=== PATIENT | female | born 1965 | race Caucasian/White ===

== ENCOUNTER 2017-02-23 15:43 | Emergency (ER) | payer OTHER ==
[2017-02-23 15:43] VITALS: BMI 48.8
[2017-02-23 15:54] VITALS: O2SAT 99
--- NOTE | 2017-02-23 16:02 | ED PDOC ---
Arrival/HPI - General Chief Complaint: Finger,Hand,&Wrist Time Seen by Provider: 02/23/17 16:01 Historian: Patient - History of Present Illness Narrative History of Present Illness (Text): 02/23/17 16:01 51 y/o female, pmh including htn/hypothyroidism, nkda, c/o lt. thumb infection x 4 days with no fall or trauma. Pt. stated that she picked her nail on the rt. thumb about 1 week ago, been having pain and swelling, no fever or chills, no difficulty bending or extending the thumb, no night sweat, no dizziness, no other medical or psychological complaints. Past Medical History - Provider Review Nursing Documentation Reviewed: Yes - Past History Past History: Non-Contributing - Infectious Disease Hx of Infectious Diseases: None - Tetanus Immunization Tetanus Immunization: Unknown - Reproductive Menopause: Yes - Cardiac Hx Cardiac Disorders: Yes Hx Hypertension: Yes Hx Pacemaker: No - Neurological Hx Paralysis: No - Endocrine/Metabolic Hx Hypothyroidism: Yes - Musculoskeletal/Rheumatological Hx Falls: No - Psychiatric Hx Depression: No Hx Emotional Abuse: No Hx Physical Abuse: No Hx Substance Use: No - Past Surgical History Past Surgical History: Non-Contributing - Surgical History Hx Section: Yes Other/Comment: Gastric sleeve - Anesthesia Hx Anesthesia: No - Suicidal Assessment Feels Threatened In Home Enviroment: No Family/Social History - Physician Review Nursing Documentation Reviewed: Yes Family/Social History: Unknown Family HX Smoking Status: Never Smoked Hx Alcohol Use: No Hx Substance Use: No Hx Substance Use Treatment: No Allergies/Home Meds Allergies/Adverse Reactions: Allergies No Known Allergies Allergy (Verified 02/23/17 15:51) Home Medications: Home Meds Medication Instructions Recorded Confirmed Levothyroxine [Synthroid] 112 mcg PO DAILY 12/21/12 02/23/17 Diclofenac Sodium [Voltaren] 75 mg PO BID 02/23/17 02/23/17 Triamterene/Hydrochlorothiazid 1 cap PO DAILY 02/23/17 02/23/17 [Triamterene-Hydrochlorothiazide 25 mg-37.5 mg] Review of Systems - Review of Systems Constitutional: absent: Fatigue, Fevers Eyes: absent: Vision Changes ENT: absent: Hearing Changes Respiratory: absent: SOB, Cough Cardiovascular: absent: Chest Pain Gastrointestinal: absent: Abdominal Pain, Nausea, Vomiting Skin: Rash, Cellulitis. absent: Pruritis, Skin Lesions, Laceration, Abscess, Ulcer Neurological: absent: Headache, Dizziness Physical Exam Vital Signs Reviewed: Yes Vital Signs Temp Pulse Resp BP Pulse Ox 02/23/17 15:53 98.5 F 63 18 118/64 99 Temperature: Afebrile Blood Pressure: Normal Pulse: Regular Respiratory Rate: Normal Appearance: Positive for: Well-Appearing, Non-Toxic Pain Distress: Moderate Mental Status: Positive for: Alert and Oriented X 3 - Systems Exam Head: Present: Atraumatic, Normocephalic Pupils: Present: PERRL Extroacular Muscles: Present: EOMI Conjunctiva: Present: Normal Mouth: Present: Moist Mucous Membranes Neck: Present: Normal Range of Motion Respiratory/Chest: Present: Clear to Auscultation, Good Air Exchange. No: Respiratory Distress, Accessory Muscle Use Cardiovascular: Present: Regular Rate and Rhythm, Normal S1, S2. No: Murmurs Abdomen: Present: Normal Bowel Sounds. No: Tenderness, Distention, Peritoneal Signs Back: Present: Normal Inspection Upper Extremity: Present: Normal Inspection, Other (Lt. hand thumb: visible paronychia noted with fluctuancy on the base of the nail fold region with mild redness surrounding, no tenderness on the flexor or extensor tendon, no streaking or ulcers, FROM without limitation, sensation intact, motor 5/5, + radial pulse, capillary refill< 2 seconds, neurovascular intact, no sausage fingers. ). No: Cyanosis, Edema Lower Extremity: Present: Normal Inspection. No: Edema Neurological: Present: GCS=15, CN II-XII Intact, Speech Normal Skin: Present: Warm, Dry, Normal Color. No: Rashes Psychiatric: Present: Alert, Oriented x 3, Normal Insight, Normal Concentration Medical Decision Making ED Course and Treatment: 02/23/17 16:55 -keflex/bactrim ds/percocet -urine hcg negative -sensation intact, motor 5/5, wound irrigate with normal saline 250cc, clean with betadine, #11 blade made approx. 0.25cm opening which drained approx. 0.5 to 1cc of yellow purulant discharge with the swelling and pain spontaneously resolved, sensation intact, motor 5/5, neurovascular intact. pt. tolerated the procedure well. -Discharge home with keflex, bactrim ds, motrin, keep the dressing dry and clean for 24 hours, clean twice daily at home, follow up with your own pmd and hand specialist within 2 days, return to the ER for any new or worsening signs or symptoms. - PA / [employer]NA[employer] / Resident Statement MD/DO has reviewed & agrees with the documentation as recorded. Disposition/Present on Arrival - Present on Arrival Any Indicators Present on Arrival: No History of DVT/PE: No History of Uncontrolled Diabetes: No Urinary Catheter: No History of Decub. Ulcer: No History Surgical Site Infection Following: None - Disposition Have Diagnosis and Disposition been Completed?: Yes Diagnosis: Cellulitis, Paronychia Disposition: HOME/ ROUTINE Disposition Time: 16:57 Patient Plan: Discharge Condition: IMPROVED Discharge Instructions (ExitCare): Cellulitis (ED), Paronychia (ED) Print Language: SWISS Additional Instructions: -Discharge home with keflex, bactrim ds, motrin, keep the dressing dry and clean for 24 hours, clean twice daily at home, follow up with your own pmd and hand specialist within 2 days, return to the ER for any new or worsening signs or symptoms. Prescriptions: Cephalexin [cephalexin] 500 mg PO QID #40 cap Ibuprofen [Motrin] 600 mg PO QID PRN #24 tab PRN Reason: Other Sulfamethoxazole/Trimethoprim [Bactrim Ds Tablet] 1 each PO BID #20 tablet Referrals: Sakina Kwong MD [Staff Provider] - Follow up with primary Forms: [email or web address] (Telugu), WORK NOTE
[2017-02-23] MEDS ORDERED: Tmp-Smz 800 mg-160 mg DS Tab PO STA (16:51)
[2017-02-23] MEDS ORDERED: Oxycodone/Acetaminophen 5/325 mg Tab PO STA (16:51)
[2017-02-23 17:39] VITALS: BP 127/63; PULSE 75; RESP 20; TEMP 98
== END 2017-02-23 17:40 | disposition home or self-care (01) ==
LOC: ED 15:43
DX: L03.012 Cellulitis of left finger (principal)

== ENCOUNTER 2017-03-27 10:57 | Emergency (ER) | payer OTHER ==
[2017-03-27 10:57] VITALS: BMI 48.8
[2017-03-27] MEDS ORDERED: Lidocaine 5% Patch TD STA (11:57)
--- NOTE | 2017-03-27 12:00 | ED PDOC ---
Arrival/HPI - General Time Seen by Provider: 03/27/17 11:47 Historian: Patient - History of Present Illness Narrative History of Present Illness (Text): 03/27/17 11:56 A 51 year old female, whose past medical history includes hypertension and hypothyroidism, presents to the emergency department complaining of lower back pain for the past few days. Patient reports radiating pain down her right leg, which she describes as a pins and needles sensation. Patient denies any trauma, injury, fever,chills, nausea, vomiting, abdominal pain, urinary symptoms, chest pain, shortness of breath or any other complaints. PMD: Dr. Silva Hill Time/Duration: Other (few days) Symptom Course: Unchanged Quality: Other Context: Home Past Medical History - Provider Review Nursing Documentation Reviewed: Yes - Past History Past History: Non-Contributing - Infectious Disease Hx of Infectious Diseases: None - Tetanus Immunization Tetanus Immunization: Unknown - Cardiac Hx Cardiac Disorders: Yes Hx Hypertension: Yes Hx Pacemaker: No - Neurological Hx Paralysis: No - Endocrine/Metabolic Hx Hypothyroidism: Yes - Musculoskeletal/Rheumatological Hx Falls: No - Psychiatric Hx Depression: No Hx Emotional Abuse: No Hx Physical Abuse: No Hx Substance Use: No - Past Surgical History Past Surgical History: Non-Contributing - Surgical History Hx Section: Yes Other/Comment: Gastric sleeve - Anesthesia Hx Anesthesia: No - Suicidal Assessment Feels Threatened In Home Enviroment: No Family/Social History - Physician Review Nursing Documentation Reviewed: Yes Family/Social History: No Known Family HX Smoking Status: Never Smoked Hx Alcohol Use: No Hx Substance Use: No Hx Substance Use Treatment: No Allergies/Home Meds Allergies/Adverse Reactions: Allergies No Known Allergies Allergy (Verified 02/23/17 15:51) Home Medications: Home Meds Medication Instructions Recorded Confirmed Levothyroxine [Synthroid] 112 mcg PO DAILY 12/21/12 03/27/17 Review of Systems - Physician Review All systems were reviewed & negative as marked: Yes - Review of Systems Constitutional: absent: Fevers, Night Sweats Respiratory: absent: SOB Cardiovascular: absent: Chest Pain Gastrointestinal: absent: Nausea, Vomiting Genitourinary Female: absent: Dysuria, Frequency, Hematuria Musculoskeletal: Back Pain (lower back pain radiating down to right leg) Physical Exam Vital Signs Temp Pulse Resp BP Pulse Ox 03/27/17 13:26 62 16 136/79 100 03/27/17 12:21 98.1 F 62 18 128/70 100 Appearance: Positive for: Well-Appearing, Non-Toxic, Comfortable Pain Distress: None Mental Status: Positive for: Alert and Oriented X 3 - Systems Exam Head: Present: Atraumatic, Normocephalic Pupils: Present: PERRL Extroacular Muscles: Present: EOMI Conjunctiva: Present: Normal Mouth: Present: Moist Mucous Membranes Neck: Present: Normal Range of Motion Respiratory/Chest: Present: Clear to Auscultation, Good Air Exchange. No: Respiratory Distress, Accessory Muscle Use Cardiovascular: Present: Regular Rate and Rhythm, Normal S1, S2. No: Murmurs Abdomen: Present: Normal Bowel Sounds. No: Tenderness, Distention, Peritoneal Signs Back: Present: Paraspinal Tenderness (Paraspinal lumbar tenderness, right worse than left), Pain with Leg Raise (Positive right leg raise ) Upper Extremity: Present: Normal Inspection. No: Cyanosis, Edema Lower Extremity: Present: NORMAL PULSES, Normal ROM. No: Edema, CALF TENDERNESS , Neurovascularly Intact (Decrease sensation in lateral side of right foot) Neurological: Present: GCS=15, CN II-XII Intact, Speech Normal Skin: Present: Warm, Dry, Normal Color. No: Rashes Psychiatric: Present: Alert, Oriented x 3, Normal Insight, Normal Concentration Medical Decision Making ED Course and Treatment: 03/27/17 11:56 Impression: A 51 year old female with lower back pain radiating down right leg. Differential Diagnosis included but are not limited to: Sciatica vs. Lumbar herniation vs. Musculoskeletal Plan: -- Flexeril, Toradol and Lidocaine -- Reassess and disposition Progress Notes: 03/27/17 13:17 On re-evaluation, patient feels better and states her pain has improved significantly. Patient is able to ambulate without any difficulty. Patient in agreement with plan to be discharged home. Patient was instructed to follow up with PMD or return if symptoms worsen or new concerning symptoms arise. - Medication Orders Current Medication Orders: Discontinued Medications Cyclobenzaprine HCl (Flexeril) 5 mg PO STAT STA Stop: 03/27/17 11:58 Last Admin: 03/27/17 12:28 Dose: 5 mg Ketorolac Tromethamine (Toradol) 60 mg IM STAT STA Stop: 03/27/17 11:58 Last Admin: 03/27/17 12:28 Dose: 60 mg Lidocaine (Lidoderm) 1 ea TD STAT STA Stop: 03/27/17 11:58 Last Admin: 03/27/17 12:28 Dose: 1 ea - Scribe Statement The provider has reviewed the documentation as recorded by the Jlibziyad Manzanares Provider Scribe Attestation: All medical record entries made by the Scribe were at my direction and personally dictated by me. I have reviewed the chart and agree that the record accurately reflects my personal performance of the history, physical exam, medical decision making, and the department course for this patient. I have also personally directed, reviewed, and agree with the discharge instructions and disposition. Disposition/Present on Arrival - Present on Arrival Any Indicators Present on Arrival: No History of DVT/PE: No History of Uncontrolled Diabetes: No Urinary Catheter: No History Surgical Site Infection Following: None - Disposition Have Diagnosis and Disposition been Completed?: Yes Diagnosis: Back pain Disposition: HOME/ ROUTINE Disposition Time: 13:17 Patient Plan: Discharge Condition: IMPROVED Discharge Instructions (ExitCare): Acute Low Back Pain (ED) Additional Instructions: Ms Desai, thank you for letting us take care of you today. Your provider was Dr. Gee. You were treated for Lumbar Strain. The emergency medical care you received today was directed at your acute symptoms. If you were prescribed any medication, please fill it and take as directed. It may take several days for your symptoms to resolve. Return to the Emergency Department if your symptoms worsen, do not improve, or if you have any other problems. Please contact your doctor or call one of the physicians/clinics you have been referred to that are listed on the Patient Visit Information form that is included in your discharge packet. Bring any paperwork you were given at discharge with you along with any medications you are taking to your follow up visit. Our treatment cannot replace ongoing medical care by a primary care provider (PCP) outside of the emergency department. Thank you for allowing the [facility] team to be part of your care today. If you had an X-Ray or CT scan: A Radiologist will review the ED reading if any change in treatment is needed we will contact you. If you had a blood, urine, or wound culture: It will take several days for the results, if any change in treatment is needed we will contact you. If you had an STI test: It will take 48 hours for the results. Please call after 1 week if you have not heard back. Prescriptions: Cyclobenzaprine [Flexeril] 5 mg PO TID PRN #20 tab PRN Reason: Muscle Spasm Lidocaine 5% [Lidoderm] 1 ea TD DAILY PRN #4 patch PRN Reason: Pain, Moderate (4-7) Referrals: Silva Hill MD [Medical Doctor] - Follow up with primary Forms: [employer] (Japanese)
[2017-03-27 12:22] VITALS: PULSE 62; TEMP 98.1; O2SAT 100
[2017-03-27 13:30] VITALS: BP 136/79; RESP 16
== END 2017-03-27 13:30 | disposition home or self-care (01) ==
LOC: ED 10:57
DX: M54.5 Low back pain (principal)
CPT/HCPCS: 96372; 99284; J1885